=== PATIENT | female | born 1975 | race Asian ===

== ENCOUNTER 2022-02-25 06:45 | Emergency (ER) | payer OTHER ==
[2022-02-25 06:53] VITALS: BP 132/83; TEMP 97.6; BMI 33.0
[2022-02-25 06:54] VITALS: PULSE 75
[2022-02-25] MEDS ORDERED: KETOROLAC TROMETHAMINE 30 MG/1 ML VIAL IM ONE (07:31)
[2022-02-25] MEDS ORDERED: LIDOCAINE 5% TOPICAL PATCH TP ONE (07:31)
[2022-02-25 08:38] LABS: URINE APPEARANCE CLEAR; URINE BILIRUBIN NEGATIVE (NEGATIVE); URINE COLOR YELLOW; URINE GLUCOSE (UA) NEGATIVE (NEGATIVE); URINE KETONE NEGATIVE (NEGATIVE); URINE LEUK ESTERASE NEGATIVE (NEGATIVE); URINE NITRITE NEGATIVE (NEGATIVE); URINE PROTEIN NEGATIVE (NEGATIVE); URINE UROBILINOGEN 0.2 mg/dL (0.2-1.0)
[2022-02-25 08:41] LABS: HCG,QUALITATIVE URINE Negative
[2022-02-25 08:48] LABS: BASO % 0.6 % (0-2.0); EOS % 2.7 % (0-4.5); HEMATOCRIT 40.7 % (32.4-45.2); HEMOGLOBIN 13.1 GM/dL (10.7-15.3); LYMPH % 30.5 % (8-40); MCH 27.3 pg (25.7-33.7); MCHC 32.3 g/dl (32.0-36.0); MEAN CELL VOLUME 84.4 fl (80-96); MEAN PLT VOLUME 8.2 fl (7.5-11.1); MONO % 8.3 % (3.8-10.2); NEUT % 57.9 % (42.8-82.8); PLATELET COUNT 301 10^3/uL (134-434); RBC 4.82 M/mm3 (3.60-5.2); RDW 13.4 % (11.6-15.6)
[2022-02-25 09:17] LABS: CALCIUM 8.8 mg/dL (8.5-10.1)
[2022-02-25 09:19] LABS: ALBUMIN 3.8 g/dl (3.4-5.0); BLOOD UREA NITROGEN 15.2 mg/dL (7-18)
[2022-02-25 09:22] LABS: CREATININE 0.6 mg/dL (0.55-1.3)
[2022-02-25 09:23] LABS: BILIRUBIN,TOTAL 0.5 mg/dL (0.2-1)
[2022-02-25] MEDS ORDERED: diazePAM 5 MG TABLET PO ONE (10:57)
[2022-02-25] MEDS ORDERED: diazePAM 5 MG TABLET ONE (11:30)
[2022-02-25] MEDS ORDERED: LIDOCAINE PATCH REMOVAL MC SCH (22:00)
== END 2022-02-25 13:00 | disposition home or self-care (01) ==
LOC: JER 06:45
PROC: 3E0233Z Introduction of Anti-inflammatory into Muscle, Percutaneous Approach (ICD-10-PCS; principal; 2022-02-25)
DX: M54.50 Low back pain, unspecified (principal); D25.9 Leiomyoma of uterus, unspecified; N83.209 Unspecified ovarian cyst, unspecified side
CPT/HCPCS: 36415; 76830-TC; 80053; 81003; 84703; 85025; 87086; 99284-25

== ENCOUNTER 2025-01-14 12:53 | Emergency (ER) | payer OTHER ==
[2025-01-14 13:11] VITALS: BP 124/74; PULSE 83; RESP 18; TEMP 98.4; BMI 31.8
[2025-01-14] MEDS ORDERED: oxyCODONE HCL 5 MG TABLET ONE (14:00)
[2025-01-14] MEDS ORDERED: ACETAMINOPHEN 500 MG TABLET (FP) ONE (14:00)
[2025-01-14] MEDS: oxyCODONE HCL 5 MG TABLET PO ONE (14:04)
[2025-01-14] MEDS: ACETAMINOPHEN 500 MG TABLET (FP) PO ONE (14:05)
[2025-01-14] MEDS ORDERED: LIDOCAINE 5% TOPICAL PATCH ONE (14:25)
[2025-01-14] MEDS: LIDOCAINE 5% TOPICAL PATCH TP ONE (14:38)
[2025-01-14 15:45] LABS: HCV DIAGNOSTIC IN-HOUSE W/RFLX NON-REACTIVE (NONREACTIVE); HIV INTERPRETATION NEGATIVE (NEGATIVE)
[2025-01-14] MEDS ORDERED: LIDOCAINE PATCH REMOVAL MC ONE (22:00)
== END 2025-01-14 16:45 | disposition home or self-care (01) ==
LOC: FER 12:53
DX: M25.562 Pain in left knee (principal)
CPT/HCPCS: 36415; 86803; 87389; 93971-TC; 99285-25